=== PATIENT | female | born 1970 | race African-American/Black ===

== ENCOUNTER 2019-11-01 16:39 | Emergency (ER) | payer SELFPAY ==
[2019-11-01] MEDS ORDERED: Albuterol 6.7 GM Inhaler INH ONE ×2 (16:40→18:19)
[2019-11-01] MEDS ORDERED: Albuterol/Ipratropium 3.0-0.5 MG/3 ML Neb Soln NEB ONE (17:02)
[2019-11-01] MEDS ORDERED: methylPREDNISolone Sodium Succinate 125 MG/2 ML SDV IM ONE (17:42)
--- NOTE | 2019-11-01 17:46 | EDM.PDOC ---
ED HPI GENERAL MEDICAL PROBLEM - General Chief Complaint: Respiratory Problem Stated Complaint: ASHMA ATTACK Time Seen by Provider: 11/01/19 17:35 Source of Information: Reports: Patient, RN, RN Notes Reviewed History Limitations: Reports: No Limitations - History of Present Illness INITIAL COMMENTS - FREE TEXT/NARRATIVE: Pt presents to ER with c/o increases SOB and exacerbation of asthma. Patient states she traveled here from [place] about 3 weeks ago. States she began having an exacerbation of asthma. She states it has been worsening over the past few days. States she has not been able to see pulmonology recently due to COVID-19. patient states [place] Unsure what this inhaler is. States she does not use a steroid inhaler. Patient states she has been using her albuterol nebulizer. Onset: Gradual - Related Data Allergies Allergy/AdvReac Type Severity Reaction Status Date / Time No Known Allergies Allergy Verified 11/01/19 16:50 Home Meds: Home Meds Albuterol Sulfate 1 unit INH ASDIRECTED PRN 11/01/19 [History] Albuterol [Ventolin HFA] 2 puff INH Q4H PRN 11/01/19 [History] Cetirizine HCl [Zyrtec] 10 mg PO DAILY 11/01/19 [History] ClonazePAM [KlonoPIN] 1 tab PO BEDTIME 11/01/19 [History] Fluticasone Propionate [Flonase Allergy Relief] 2 spray NASBOTH DAILY 11/01/19 [ History] buPROPion [Wellbutrin SR] 150 mg PO DAILY 11/01/19 [History] Past Medical History HEENT History: Reports: None Cardiovascular History: Reports: None Respiratory History: Reports: Asthma Gastrointestinal History: Reports: None Genitourinary History: Reports: None Neurological History: Reports: None Psychiatric History: Reports: Anxiety, Depression Endocrine/Metabolic History: Reports: None Hematologic History: Reports: None Immunologic History: Reports: None Oncologic (Cancer) History: Reports: None Dermatologic History: Reports: None - Past Surgical History Musculoskeletal Surgical History: Reports: Other (See Below) Other Musculoskeletal Surgeries/Procedures:: Lower back surgery due to ruptured disk. disk replaced in neck Social & Family History - Tobacco Use Smoking Status *Q: Former Smoker Used Tobacco, but Quit: Yes Month/Year Tobacco Last Used: 1 year ED ROS GENERAL - Review of Systems Review Of Systems: Comprehensive ROS is negative, except as noted in HPI. ED EXAM, GENERAL - Physical Exam Exam: See Below Exam Limited By: No Limitations General Appearance: Alert, WD/WN, Mild Distress Eye Exam: Bilateral Eye: EOMI, Normal Inspection Ears: Normal External Exam, Hearing Grossly Normal Nose: Normal Inspection Throat/Mouth: Normal Inspection, Normal Voice, No Airway Compromise Head: Atraumatic, Normocephalic Neck: Normal Inspection, Supple, Non-Tender, Full Range of Motion Respiratory/Chest: Respiratory Distress (mild), Crackles, Wheezing Cardiovascular: Normal Peripheral Pulses, Regular Rate, Rhythm, No Edema, No Gallop, No JVD, No Murmur, No Rub Peripheral Pulses: 2+: Radial (L), Radial (R) GI/Abdominal: Normal Bowel Sounds, Soft, Non-Tender, No Organomegaly, No Distention, No Abnormal Bruit, No Mass (Female) Exam: Deferred Rectal (Female) Exam: Deferred Back Exam: Normal Inspection, Full Range of Motion, NT Extremities: Normal Inspection, Normal Range of Motion, Non-Tender, Normal Capillary Refill, No Pedal Edema Neurological: Alert, Oriented, CN II-XII Intact, Normal Cognition, Normal Gait, Normal Reflexes, No Motor/Sensory Deficits Psychiatric: Normal Affect, Normal Mood Skin Exam: Warm, Dry, Intact, Normal Color, No Rash Lymphatic: No Adenopathy Course - Vital Signs Last Recorded V/S: Last Vital Signs Temp 98.1 F 11/01/19 16:45 Pulse 100 11/01/19 17:02 Resp 22 H 11/01/19 16:45 BP 117/91 H 11/01/19 16:45 Pulse Ox 91 L 11/01/19 17:02 - Orders/Labs/Meds Orders: Active Orders 24 hr Category Date Time Status RT Aerosol Therapy [RC] ASDIRECTED Care 11/01/19 17:02 Active RT Aerosol Therapy [RC] ASDIRECTED Care 11/01/19 18:09 Active Chest 2V [CR] Urgent Exams 11/01/19 18:10 Stop Req Meds: Medications Discontinued Medications Generic Name Dose Route Start Last Admin Trade Name Freq PRN Reason Stop Dose Admin Albuterol 2.5 mg 11/01/19 18:09 11/01/19 18:14 Proventil Neb Soln NEB 11/01/19 18:10 2.5 mg ONETIME ONE Administration Albuterol Confirm 11/01/19 18:19 11/01/19 18:23 Proventil Hfa Administered 11/01/19 18:20 Not Given Dose 6.7 gm INH .STK-MED ONE Albuterol/Ipratropium 3 ml 11/01/19 17:02 11/01/19 17:10 Duoneb 3.0-0.5 Mg/3 Ml NEB 11/01/19 17:03 3 ml ONETIME ONE Administration Methylprednisolone Sodium Succinate 125 mg 11/01/19 17:42 11/01/19 17:48 Solu-Medrol IM 11/01/19 17:43 125 mg ONETIME ONE Administration - Re-Assessments/Exams Free Text/Narrative Re-Assessment/Exam: 11/01/19 18:18 Patient declines chest x-ray or lab work today. Patient states she has not had a fever or chills. Patient states she is from [place] and out of [facility], states if she develops worsening symptoms fever, chills, increased shortness of breath , she states she will return to the ER. Departure - Departure Time of Disposition: 18:40 Disposition: Home, Self-Care 01 Condition: Fair Clinical Impression: Exacerbation of asthma Qualifiers: Asthma severity: moderate Asthma persistence: persistent Qualified Code(s): J45.41 - Moderate persistent asthma with (acute) exacerbation - Discharge Information *PRESCRIPTION DRUG MONITORING PROGRAM REVIEWED*: No *COPY OF PRESCRIPTION DRUG MONITORING REPORT IN PATIENT IVANNA: No Instructions: Shortness of Breath, Adult, [id number] Forms: ED Department Discharge Additional Instructions: RX: Pulmicort inhaler, Prednisone, Albuterol inhaler Follow up with your primary care facility and pulmonology Return to the ER with any worsening of symptoms Sepsis Event Note - Evaluation Sepsis Screening Result: Possible Sepsis Risk - Focused Exam Vital Signs: Vital Signs Temp Pulse Resp BP Pulse Ox Pulse Ox 11/01/19 17:02 100 91 L 11/01/19 16:45 98.1 F 100 22 H 117/91 H 93 L Date Exam was Performed: 11/01/19 Time Exam was Performed: 18:46 - My Orders Last 24 Hours: My Active Orders 11/01/19 17:02 RT Aerosol Therapy [RC] ASDIRECTED 11/01/19 18:09 RT Aerosol Therapy [RC] ASDIRECTED 11/01/19 18:10 Chest 2V [CR] Urgent - Assessment/Plan Last 24 Hours: My Active Orders 11/01/19 17:02 RT Aerosol Therapy [RC] ASDIRECTED 11/01/19 18:09 RT Aerosol Therapy [RC] ASDIRECTED 11/01/19 18:10 Chest 2V [CR] Urgent
[2019-11-01] MEDS ORDERED: Albuterol 0.083% 2.5 MG/3 ML Neb Soln NEB ONE (18:09)
== END 2019-11-01 18:35 | disposition home or self-care (01) ==
LOC: DL.ED 16:39
DX: J45.41 Moderate persistent asthma with (acute) exacerbation (principal); F41.9 Anxiety disorder, unspecified; F32.9 Major depressive disorder, single episode, unspecified; Z87.891 Personal history of nicotine dependence; Z79.899 Other long term (current) drug therapy
CPT/HCPCS: 94640; 96372; 99283; 99284-25; A9270-GY; J2930; J7613-GY; J7620-GY

== ENCOUNTER 2019-11-18 13:11 | Emergency (ER) | payer SELFPAY ==
[2019-11-18] MEDS ORDERED: Albuterol/Ipratropium 3.0-0.5 MG/3 ML Neb Soln NEB ONE (13:27)
[2019-11-18] MEDS ORDERED: methylPREDNISolone Sodium Succinate 125 MG/2 ML SDV IM ONE (13:27)
--- NOTE | 2019-11-18 13:27 | EDM.PDOC ---
ED HPI GENERAL MEDICAL PROBLEM - General Chief Complaint: Asthma Stated Complaint: ASTHMA ATTACK Time Seen by Provider: 11/18/19 13:27 Source of Information: Reports: Patient, Old Records, RN, RN Notes Reviewed History Limitations: Reports: No Limitations - History of Present Illness INITIAL COMMENTS - FREE TEXT/NARRATIVE: Pt presents to ER by POV with c/o asthma flare up. She states for the past 2 to 3 days she has had increasing problems with her asthma flaring up. Coughing up "opaque" sputum. Denies fever and chills. Denies asthma flare up being different from prior flare ups. Using her Proventil MDI "quite often". Not using the nebulizer, "it stopped working about 2 weeks ago" and feels MDI working better. Onset: Gradual Duration: Recurring Location: Reports: Chest Severity: Severe Improves with: Reports: None Worsens with: Reports: Breathing Associated Symptoms: Reports: No Other Symptoms Treatments THERAPY MANAGER: Reports: Breathing Treatments - Related Data Allergies Allergy/AdvReac Type Severity Reaction Status Date / Time No Known Allergies Allergy Verified 11/18/19 13:16 Home Meds: Home Meds Albuterol Sulfate 1 unit INH ASDIRECTED PRN 11/01/19 [History] Albuterol [Ventolin HFA] 2 puff INH Q4H PRN 11/01/19 [History] Cetirizine HCl [Zyrtec] 10 mg PO DAILY 11/01/19 [History] ClonazePAM [KlonoPIN] 1 tab PO BEDTIME 11/01/19 [History] Fluticasone Propionate [Flonase Allergy Relief] 2 spray NASBOTH DAILY 11/01/19 [ History] buPROPion [Wellbutrin SR] 150 mg PO DAILY 11/01/19 [History] Past Medical History HEENT History: Reports: None Cardiovascular History: Reports: None Respiratory History: Reports: Asthma Gastrointestinal History: Reports: None Genitourinary History: Reports: None Neurological History: Reports: None Psychiatric History: Reports: Anxiety, Depression Endocrine/Metabolic History: Reports: None Hematologic History: Reports: None Immunologic History: Reports: None Oncologic (Cancer) History: Reports: None Dermatologic History: Reports: None - Past Surgical History Musculoskeletal Surgical History: Reports: Other (See Below) Other Musculoskeletal Surgeries/Procedures:: Lower back surgery due to ruptured disk. disk replaced in neck Social & Family History - Family History Family Medical History: Noncontributory - Living Situation & Occupation Living situation: Reports: with Family Occupation: Employed ED ROS GENERAL - Review of Systems Review Of Systems: Comprehensive ROS is negative, except as noted in HPI. ED EXAM, GENERAL - Physical Exam Exam: See Below Exam Limited By: No Limitations General Appearance: Alert, WD/WN, No Apparent Distress Eye Exam: Bilateral Eye: Normal Inspection Ears: Normal External Exam, Normal Canal, Hearing Grossly Normal, Other (Dull TMs with clear fluid levels) Nose: No Blood, Other (mild congestion) Throat/Mouth: Normal Inspection, Normal Lips, Normal Teeth, Normal Gums, Normal Oropharynx, Normal Voice, No Airway Compromise Head: Atraumatic, Normocephalic Neck: Normal Inspection, Supple, Non-Tender, Full Range of Motion Respiratory/Chest: No Respiratory Distress, No Accessory Muscle Use, Decreased Breath Sounds, Wheezing. No: Rales, Rhonchi, Stridor Cardiovascular: Regular Rate, Rhythm, No Edema, Tachycardia Extremities: Normal Inspection, No Pedal Edema Neurological: Alert, Oriented, No Motor/Sensory Deficits Psychiatric: Normal Mood Skin Exam: Warm, Dry, Intact, Normal Color, No Rash Course - Vital Signs Last Recorded V/S: Last Vital Signs Temp 98 F 11/18/19 13:13 Pulse 97 11/18/19 13:28 Resp 22 H 11/18/19 13:13 BP 119/63 11/18/19 13:13 Pulse Ox 98 11/18/19 13:28 - Orders/Labs/Meds Orders: Active Orders 24 hr Category Date Time Status RT Aerosol Therapy [RC] ASDIRECTED Care 11/18/19 13:28 Active Meds: Medications Discontinued Medications Generic Name Dose Route Start Last Admin Trade Name Freq PRN Reason Stop Dose Admin Albuterol/Ipratropium 3 ml 11/18/19 13:27 11/18/19 13:35 Duoneb 3.0-0.5 Mg/3 Ml NEB 11/18/19 13:28 3 ml ONETIME ONE Administration Methylprednisolone Sodium Succinate 125 mg 11/18/19 13:27 11/18/19 13:48 Solu-Medrol IM 11/18/19 13:28 125 mg ONETIME ONE Administration Departure - Departure Time of Disposition: 13:38 Disposition: Home, Self-Care 01 Condition: Good Clinical Impression: Environmental and seasonal allergies Acute asthma exacerbation Qualifiers: Asthma severity: severe Asthma persistence: persistent Qualified Code(s): J45.51 - Severe persistent asthma with (acute) exacerbation - Discharge Information *PRESCRIPTION DRUG MONITORING PROGRAM REVIEWED*: Not Applicable *COPY OF PRESCRIPTION DRUG MONITORING REPORT IN PATIENT IVANNA: Not Applicable Instructions: Allergies, Adult, [id number], Asthma Attack Forms: ED Department Discharge Additional Instructions: Rx: Prednisone 20mg *Take with meals. Rx: ProAir (Albuterol) Inhaler Rx: Flovent 220mcg (for asthma maintenance) *Rinse mouth with water after every use. Follow up in clinic. Call [phone] to schedule an appointment at the [facility] in [place] in the next 4 to 5 days. Return to ER if worse at any time. Sepsis Event Note - Focused Exam Vital Signs: Vital Signs Temp Pulse Resp BP Pulse Ox Pulse Ox 11/18/19 13:28 97 98 11/18/19 13:13 98 F 104 H 22 H 119/63 95 Date Exam was Performed: 11/18/19 Time Exam was Performed: 13:49 - My Orders Last 24 Hours: My Active Orders 11/18/19 13:28 RT Aerosol Therapy [RC] ASDIRECTED - Assessment/Plan Last 24 Hours: My Active Orders 11/18/19 13:28 RT Aerosol Therapy [RC] ASDIRECTED
== END 2019-11-18 14:09 | disposition home or self-care (01) ==
LOC: DL.ED 13:11
DX: J45.51 Severe persistent asthma with (acute) exacerbation (principal); J30.2 Other seasonal allergic rhinitis; F41.9 Anxiety disorder, unspecified; F32.9 Major depressive disorder, single episode, unspecified; Z79.899 Other long term (current) drug therapy
CPT/HCPCS: 96372; 99284; J2930; J7620-GY

== ENCOUNTER 2019-11-29 10:54 | Emergency (ER) | payer SELFPAY ==
--- NOTE | 2019-11-29 11:16 | EDM.PDOC ---
ED HPI GENERAL MEDICAL PROBLEM - General Chief Complaint: Respiratory Problem Stated Complaint: ASTHMA SYMPTOMS Time Seen by Provider: 11/29/19 11:15 Source of Information: Reports: Patient, RN, RN Notes Reviewed - History of Present Illness INITIAL COMMENTS - FREE TEXT/NARRATIVE: Patient presents to ER with complaint of increased shortness of breath, pain in the center of the chest with breathing, congestion. Patient admits to asthma history. Has been seen in the emergency department on October 31, and November 17. Both times patient declined chest x-ray and lab. Was prescribed prednisone and albuterol inhalers. In October she was prescribed a Pulmicort inhaler, and in November she was prescribed a Flovent inhaler which she stated were to expensive for her to fill. Patient states she is from [place] and has a plan to go back to [place] as soon as she can. Patient denies any productive cough, fever, chills. Onset: Gradual Duration: Constant, Getting Worse Location: Reports: Chest - Related Data Allergies Allergy/AdvReac Type Severity Reaction Status Date / Time No Known Allergies Allergy Verified 11/29/19 11:13 Home Meds: Home Meds Albuterol Sulfate 1 unit INH ASDIRECTED PRN 11/01/19 [History] Albuterol [Ventolin HFA] 2 puff INH Q4H PRN 11/01/19 [History] Cetirizine HCl [Zyrtec] 10 mg PO DAILY 11/01/19 [History] ClonazePAM [KlonoPIN] 1 tab PO BEDTIME 11/01/19 [History] Fluticasone Propionate [Flonase Allergy Relief] 2 spray NASBOTH DAILY 11/01/19 [ History] buPROPion [Wellbutrin SR] 150 mg PO DAILY 11/01/19 [History] Past Medical History HEENT History: Reports: None Cardiovascular History: Reports: None Respiratory History: Reports: Asthma Gastrointestinal History: Reports: None Genitourinary History: Reports: None Neurological History: Reports: None Psychiatric History: Reports: Anxiety, Depression Endocrine/Metabolic History: Reports: None Hematologic History: Reports: None Immunologic History: Reports: None Oncologic (Cancer) History: Reports: None Dermatologic History: Reports: None - Past Surgical History Musculoskeletal Surgical History: Reports: Other (See Below) Other Musculoskeletal Surgeries/Procedures:: Lower back surgery due to ruptured disk. disk replaced in neck Social & Family History - Family History Family Medical History: Noncontributory - Living Situation & Occupation Living situation: Reports: with Family Occupation: Employed ED ROS GENERAL - Review of Systems Review Of Systems: Comprehensive ROS is negative, except as noted in HPI. ED EXAM, GENERAL - Physical Exam Exam: See Below Exam Limited By: No Limitations General Appearance: Alert, WD/WN, Mild Distress Eye Exam: Bilateral Eye: EOMI, Normal Inspection Ears: Normal External Exam, Hearing Grossly Normal Nose: Normal Inspection Throat/Mouth: Normal Inspection, Normal Voice, No Airway Compromise Head: Atraumatic, Normocephalic Neck: Normal Inspection, Supple, Non-Tender, Full Range of Motion Respiratory/Chest: Wheezing (expiratory), Other (Mild SOB, mid sternal pain with breathing) Cardiovascular: Normal Peripheral Pulses, Regular Rate, Rhythm, No Edema, No Gallop, No JVD, No Murmur, No Rub Peripheral Pulses: 2+: Radial (L), Radial (R) GI/Abdominal: Normal Bowel Sounds, Soft, Non-Tender (Female) Exam: Deferred Rectal (Female) Exam: Deferred Back Exam: Normal Inspection, Full Range of Motion, NT Extremities: Normal Inspection, Normal Range of Motion, Non-Tender, Normal Capillary Refill, No Pedal Edema Neurological: Alert, Oriented, CN II-XII Intact, Normal Cognition, Normal Gait, Normal Reflexes, No Motor/Sensory Deficits Psychiatric: Normal Affect, Normal Mood Skin Exam: Warm, Dry, Intact, Normal Color, No Rash Lymphatic: No Adenopathy Course - Vital Signs Last Recorded V/S: Last Vital Signs Temp 97.7 F 11/29/19 10:57 Pulse 81 11/29/19 11:30 Resp 20 11/29/19 10:57 BP 134/79 11/29/19 10:57 Pulse Ox 98 11/29/19 11:30 - Orders/Labs/Meds Orders: Active Orders 24 hr Category Date Time Status RT Aerosol Therapy [RC] ASDIRECTED Care 11/29/19 11:30 Active Meds: Medications Discontinued Medications Generic Name Dose Route Start Last Admin Trade Name Freq PRN Reason Stop Dose Admin Albuterol/Ipratropium 3 ml 11/29/19 11:29 11/29/19 11:44 Duoneb 3.0-0.5 Mg/3 Ml NEB 05/18/20 11:30 3 ml ONETIME ONE Administration Methylprednisolone Sodium Succinate 125 mg 11/29/19 12:55 11/29/19 13:04 Solu-Medrol IM 11/29/19 12:56 125 mg ONETIME ONE Administration - Radiology Interpretation Free Text/Narrative:: Chest xray: Bronchitis. No signs of heart failure, lung mass, or lobar pneumonia. See rad report Departure - Departure Time of Disposition: 13:06 Disposition: Home, Self-Care 01 Condition: Fair Clinical Impression: Asthmatic bronchitis with acute exacerbation Qualifiers: Asthma severity: moderate Asthma persistence: persistent Qualified Code(s): J45.41 - Moderate persistent asthma with (acute) exacerbation - Discharge Information *PRESCRIPTION DRUG MONITORING PROGRAM REVIEWED*: No *COPY OF PRESCRIPTION DRUG MONITORING REPORT IN PATIENT IVANNA: No Instructions: Metered Dose Inhaler (No Spacer Used), Acute Bronchitis, Adult, [id number], Asthma, Adult, [id number] Forms: ED Department Discharge Additional Instructions: Get plenty of rest Drink plenty of fluids RX: Albuterol inhaler (with refills), Prednisone, Azithromycin Get nebulizer machine at [employer] in [facility] Make an appointment with [facility] for an appointment Sepsis Event Note - Evaluation Sepsis Screening Result: No Definite Risk - Focused Exam Vital Signs: Vital Signs Temp Pulse Resp BP Pulse Ox Pulse Ox 11/29/19 11:30 81 98 11/29/19 10:57 97.7 F 94 20 134/79 97 Date Exam was Performed: 11/29/19 Time Exam was Performed: 18:54 - My Orders Last 24 Hours: My Active Orders 11/29/19 11:30 RT Aerosol Therapy [RC] ASDIRECTED - Assessment/Plan Last 24 Hours: My Active Orders 11/29/19 11:30 RT Aerosol Therapy [RC] ASDIRECTED
[2019-11-29] MEDS: Albuterol/Ipratropium 3.0-0.5 MG/3 ML Neb Soln NEB ONE (11:44)
--- NOTE | 2019-11-29 11:51 | CR ---
EXAMINATION: Chest 2V SEX: Female AGE: 49 years CLINICAL HISTORY: 49-year-old female with clinical "asthma" and clinical shortness of breath (SOB). INTERPRETATION: 1. Coarse accentuation central lung markings with some peribronchial "cuffing" and mild air trapping typical reactive airway disease i.e. asthmatic bronchitis. 2. Normal cardiac silhouette. Left-sided aortic arch. No pulmonary vascular congestion, cephalization of flow, alveolar edema or dependent effusion. 3. Evidence of lower cervical disc surgery. Lung apices clear. Midline tracheal airway and bronchi unremarkable. 4. No lung mass, hilar lymphadenopathy or focal lobar pneumonia. 5. No atelectasis/collapse. 6. No pneumothorax or pneumomediastinum. CONCLUSION: Bronchitis. No signs of heart failure lung mass or lobar pneumonia.
[2019-11-29] MEDS: methylPREDNISolone Sodium Succinate 125 MG/2 ML SDV IM ONE (13:04)
== END 2019-11-29 13:16 | disposition home or self-care (01) ==
LOC: DL.ED 10:54
DX: J45.41 Moderate persistent asthma with (acute) exacerbation (principal)
CPT/HCPCS: 71046; 94640; 96372; 99285; J2930; J7620-GY

== ENCOUNTER 2019-12-09 03:54 | Observation (INO) | payer MEDICAID, OTHER, SELFPAY ==
[2019-12-09] MEDS ORDERED: Albuterol/Ipratropium 3.0-0.5 MG/3 ML Neb Soln NEB ONE (04:00)
[2019-12-09] MEDS ORDERED: methylPREDNISolone Sodium Succinate 125 MG/2 ML SDV IVPUSH ONE (04:00)
--- NOTE | 2019-12-09 04:10 | EDM.PDOC ---
ED HPI GENERAL MEDICAL PROBLEM - General Stated Complaint: LUIS ANTONIO DAUGHERTY, ASTHMA Time Seen by Provider: 12/09/19 04:05 Source of Information: Reports: Patient History Limitations: Reports: No Limitations - History of Present Illness INITIAL COMMENTS - FREE TEXT/NARRATIVE: Ed with c/o worsening of asthma today. Has only been this bad one time. Last neb approximately 30minutes prior. Non smoker. No fever or chills. Has been seen multiple times in ED over past 2 months. Last on 11/28 given steroids and z pack. Initial O2 saturation 83% on room air. Denies fever chills or body aches. - Related Data Allergies Allergy/AdvReac Type Severity Reaction Status Date / Time No Known Allergies Allergy Verified 12/09/19 04:09 Home Meds: Home Meds Albuterol Sulfate 1 unit INH ASDIRECTED PRN 11/01/19 [History] Albuterol [Ventolin HFA] 2 puff INH Q4H PRN 11/01/19 [History] Cetirizine HCl [Zyrtec] 10 mg PO DAILY 11/01/19 [History] ClonazePAM [KlonoPIN] 1 tab PO BEDTIME 11/01/19 [History] Fluticasone Propionate [Flonase Allergy Relief] 2 spray NASBOTH DAILY 11/01/19 [ History] buPROPion [Wellbutrin SR] 150 mg PO DAILY 11/01/19 [History] Past Medical History HEENT History: Reports: None Cardiovascular History: Reports: None Respiratory History: Reports: Asthma Gastrointestinal History: Reports: None Genitourinary History: Reports: None Neurological History: Reports: None Psychiatric History: Reports: Anxiety, Depression Endocrine/Metabolic History: Reports: None Hematologic History: Reports: None Immunologic History: Reports: None Oncologic (Cancer) History: Reports: None Dermatologic History: Reports: None - Past Surgical History Musculoskeletal Surgical History: Reports: Other (See Below) Other Musculoskeletal Surgeries/Procedures:: Lower back surgery due to ruptured disk. disk replaced in neck Social & Family History - Family History Family Medical History: Noncontributory - Living Situation & Occupation Living situation: Reports: with Family Occupation: Employed ED ROS GENERAL - Review of Systems Review Of Systems: See Below Constitutional: Denies: Fever, Chills HEENT: Reports: No Symptoms Respiratory: Reports: Shortness of Breath, Wheezing, Pleuritic Chest Pain, Cough. Denies: Sputum GI/Abdominal: Reports: No Symptoms Musculoskeletal: Reports: No Symptoms Skin: Reports: No Symptoms Neurological: Reports: No Symptoms ED EXAM, GENERAL - Physical Exam Exam: See Below Exam Limited By: No Limitations General Appearance: Alert, Moderate Distress Eye Exam: Bilateral Eye: EOMI Ears: Normal External Exam Nose: Normal Inspection Throat/Mouth: Normal Inspection Head: Atraumatic, Normocephalic Neck: Normal Inspection Respiratory/Chest: Rhonchi, Wheezing (throughout) Cardiovascular: Normal Peripheral Pulses, Regular Rate, Rhythm, Tachycardia GI/Abdominal: Soft Back Exam: Normal Inspection Extremities: Normal Inspection Neurological: Alert, Oriented, Normal Cognition Psychiatric: Normal Affect Skin Exam: Warm, Dry, Intact, Normal Color Course - Vital Signs Last Recorded V/S: Last Vital Signs Temp 98.7 F 12/09/19 05:13 Pulse 107 H 12/09/19 05:13 Resp 26 H 12/09/19 05:13 BP 154/68 H 12/09/19 05:13 Pulse Ox 98 12/09/19 05:13 - Orders/Labs/Meds Orders: Active Orders 24 hr Category Date Time Status EKG Documentation Completion [RC] URGENT Care 12/09/19 05:14 Active RT Aerosol Therapy [RC] ASDIRECTED Care 12/09/19 04:00 Active RT Aerosol Therapy [RC] ASDIRECTED Care 12/09/19 04:21 Active Labs: Laboratory Tests 12/09/19 12/09/19 12/09/19 Range/Units 04:17 04:17 04:17 WBC 14.7 H (5.0-10.0) 10^3/uL RBC 4.93 (4.2-5.4) 10^6/uL Hgb 12.7 (12.0-16.0) g/dL Hct 41.3 (37.0-47.0) % MCV 83.8 (80-100) fL MCH 25.8 L (27.0-34.0) pg MCHC 30.8 L (33.0-35.0) g/dL Plt Count 447 (150-450) 10^3/uL Neut % (Auto) 53.1 (42.2-75.2) % Lymph % (Auto) 29.0 (20.5-50.1) % [place] % (Auto) 7.5 (2-8) % Eos % (Auto) 10.2 H (1.0-3.0) % Baso % (Auto) 0.2 (0.0-1.0) % Add Manual Diff Yes Neutrophils % (Manual) 50 (42-75) % Band Neutrophils % 3 % Lymphocytes % (Manual) 32 (20-50) % Monocytes % (Manual) 5 (2-8) % Eosinophils % (Manual) 10 H (1-3) % Sodium 139 (136-145) mmol/L Potassium 3.9 (3.5-5.1) mmol/L Chloride 102 (98-107) mmol/L Carbon Dioxide 29 (21-32) mmol/L Anion Gap 11.9 (7-13) mEq/L BUN 13 (7-18) mg/dL Creatinine 0.98 (0.55-1.02) mg/dL Est Cr Clr Drug Dosing 58.07 mL/min Estimated GFR (MDRD) > 60 BUN/Creatinine Ratio 13.3 (No establ ref range) Glucose 167 H (74-99) mg/dL Lactic Acid 1.3 (0.4-2.0) mmol/L Calcium 9.0 (8.5-10.1) mg/dL Magnesium (1.8-2.4) mg/dL Total Bilirubin 0.2 (0.2-1.0) mg/dL AST 19 (15-37) U/L ALT 29 (14-59) U/L Alkaline Phosphatase 127 H (46-116) U/L Troponin I < 0.017 (0.000-0.056) ng/mL B-Natriuretic Peptide < 5 (0-100) pg/ml Total Protein 8.1 (6.4-8.2) g/dL Albumin 3.9 (3.4-5.0) g/dL Globulin 4.2 Albumin/Globulin Ratio 0.9 05/28/20 Range/Units 04:17 WBC (5.0-10.0) 10^3/uL RBC (4.2-5.4) 10^6/uL Hgb (12.0-16.0) g/dL Hct (37.0-47.0) % MCV (80-100) fL MCH (27.0-34.0) pg MCHC (33.0-35.0) g/dL Plt Count (150-450) 10^3/uL Neut % (Auto) (42.2-75.2) % Lymph % (Auto) (20.5-50.1) % [place] % (Auto) (2-8) % Eos % (Auto) (1.0-3.0) % Baso % (Auto) (0.0-1.0) % Add Manual Diff Neutrophils % (Manual) (42-75) % Band Neutrophils % % Lymphocytes % (Manual) (20-50) % Monocytes % (Manual) (2-8) % Eosinophils % (Manual) (1-3) % Sodium (136-145) mmol/L Potassium (3.5-5.1) mmol/L Chloride (98-107) mmol/L Carbon Dioxide (21-32) mmol/L Anion Gap (7-13) mEq/L BUN (7-18) mg/dL Creatinine (0.55-1.02) mg/dL Est Cr Clr Drug Dosing mL/min Estimated GFR (MDRD) BUN/Creatinine Ratio (No establ ref range) Glucose (74-99) mg/dL Lactic Acid (0.4-2.0) mmol/L Calcium (8.5-10.1) mg/dL Magnesium 2.4 (1.8-2.4) mg/dL Total Bilirubin (0.2-1.0) mg/dL AST (15-37) U/L ALT (14-59) U/L Alkaline Phosphatase (46-116) U/L Troponin I (0.000-0.056) ng/mL B-Natriuretic Peptide (0-100) pg/ml Total Protein (6.4-8.2) g/dL Albumin (3.4-5.0) g/dL Globulin Albumin/Globulin Ratio Meds: Medications Discontinued Medications Generic Name Dose Route Start Last Admin Trade Name Freq PRN Reason Stop Dose Admin Albuterol 2.5 mg 12/09/19 04:21 12/09/19 04:31 Proventil Neb Soln [facility] 12/09/19 04:22 2.5 mg ONETIME ONE Administration Albuterol/Ipratropium 3 ml 12/09/19 04:00 12/09/19 04:09 Duoneb 3.0-0.5 Mg/3 Ml [facility] 12/09/19 04:01 3 ml ONETIME ONE Administration Magnesium Sulfate 2 gm/ Premix 50 mls @ 25 mls/hr 12/09/19 04:22 IV 12/09/19 06:21 ONETIME ONE Magnesium Sulfate/Dextrose 1 100 mls @ 100 mls/hr 12/09/19 04:25 12/09/19 04: 31 gm/ Premix IV 12/09/19 05:24 100 mls/hr ONETIME ONE Administration Methylprednisolone Sodium Succinate 125 mg 12/09/19 04:00 12/09/19 04:09 Solu-Medrol IVPUSH 12/09/19 04:01 125 mg ONETIME ONE Administration - Radiology Interpretation Free Text/Narrative:: [facility] Final Radiology Report Call: [phone] assistance Online chat: [email or web address] Name: BLAIRE PHAM Age: 49Years F Date: 12/09/2019 SSN: -- : 1970 Study: XR CHEST 1 VIEW FRONTAL Requesting Physician: MARY BUSTILLOS Images: 1 Addl Studies: Provided Clinical History: hx asthma Contrast: Contrast Medium: Contrast Amount: Contrast Method: CONFIDENTIALITY STATEMENT This report is intended only for use by the referring physician, and only in accordance with law. If you received this in error, call [phone]. Page 1 of 1 PROCEDURE INFORMATION: Exam: XR Chest, 1 View Exam date and time: 12/09/2019 4:34 AM Age: 49 years old Clinical indication: Shortness of breath; Additional info: HX asthma TECHNIQUE: Imaging protocol: XR of the chest Views: 1 view. COMPARISON: CR Chest 2V 11/29/2019 11:35 AM FINDINGS: Lungs: As visualized lungs are clear. Pleural space: Unremarkable. No pleural effusion. No pneumothorax. Heart/Mediastinum: Unremarkable. No cardiomegaly. Bones/joints: Unremarkable. Soft tissues: Assessment of the lung bases limited by overlapping chest wall soft tissues. IMPRESSION: Haziness at the lung bases most likely related to overlapping chest wall soft tissues. Underlying lung parenchymal abnormality or small effusions cannot be confidently excluded. Thank you for allowing us to participate in the care of your patient. Dictated and Authenticated by: Charo Guerrero MD 12/09/2019 4:59 AM Central Time ([place] & [place]) - Re-Assessments/Exams Free Text/Narrative Re-Assessment/Exam: 12/09/19 04:4 Continued sheezing throughout with some improvement in air exchange, now 4-5 word sentences.. Less anxious. Up to BSC, Dyspnea and poor tolerance with minimal exertion 12/09/19 05:[address] Tovar accepting patient for observation. Departure - Departure Time of Disposition: 05:34 Disposition: Refer to Observation Condition: Good Clinical Impression: Hypoxemia Acute asthma exacerbation Qualifiers: Asthma severity: severe Asthma persistence: persistent Qualified Code(s): J45.51 - Severe persistent asthma with (acute) exacerbation - Discharge Information *PRESCRIPTION DRUG MONITORING PROGRAM REVIEWED*: No *COPY OF PRESCRIPTION DRUG MONITORING REPORT IN PATIENT IVANNA: No Sepsis Event Note - Focused Exam Vital Signs: Vital Signs Temp Pulse Resp BP Pulse Ox 12/09/19 05:13 98.7 F 107 H 26 H 154/68 H 98 12/09/19 04:07 99.1 F 133 H 28 H 152/93 H 83 L Date Exam was Performed: 12/09/19 Time Exam was Performed: :28 - My Orders Last 24 Hours: My Active Orders 12/09/19 04:00 RT Aerosol Therapy [RC] ASDIRECTED 12/09/19 04:21 RT Aerosol Therapy [RC] ASDIRECTED 12/09/19 05:14 EKG Documentation Completion [RC] URGENT - Assessment/Plan Last 24 Hours: My Active Orders 12/09/19 04:00 RT Aerosol Therapy [RC] ASDIRECTED 12/09/19 04:21 RT Aerosol Therapy [RC] ASDIRECTED 12/09/19 05:14 EKG Documentation Completion [RC] URGENT
[2019-12-09] MEDS ORDERED: Albuterol 0.083% 2.5 MG/3 ML Neb Soln NEB ONE (04:21)
[2019-12-09] MEDS ORDERED: Magnesium Sulfate/Water 2 GM in Premix Bag 1 BAG IV ONE (04:22)
[2019-12-09 05:03] LABS: ANION GAP 11.9 mEq/L (7-13); CHLORIDE,CL 102 mmol/L (98-107); SODIUM,NA 139 mmol/L (136-145)
[2019-12-09] MEDS ORDERED: Acetaminophen 325 MG Tab PO PRN (08:18)
[2019-12-09] MEDS ORDERED: Sodium Chloride 0.9% 10 ML Syringe FLUSH PRN (08:18)
[2019-12-09] MEDS ORDERED: Docusate Sodium 100 MG Cap PO PRN (08:18)
[2019-12-09] MEDS ORDERED: Ondansetron 4 MG Tab.DIS PO PRN (08:18)
[2019-12-09] MEDS ORDERED: Temazepam 15 MG Cap PO PRN (08:18)
[2019-12-09] MEDS ORDERED: Albuterol 0.083% 2.5 MG/3 ML Neb Soln NEB PRN (08:21)
[2019-12-09] MEDS ORDERED: Loratadine 10 MG Tab PO SCH (09:00)
[2019-12-09] MEDS ORDERED: buPROPion 150 MG Tab.SR PO SCH (09:00)
[2019-12-09] MEDS: Budesonide 0.5 MG/2 ML Neb Susp NEB SCH ×2 (09:14→17:48)
[2019-12-09] MEDS: Albuterol/Ipratropium 3.0-0.5 MG/3 ML Neb Soln NEB SCH ×3 (09:15→17:48)
[2019-12-09] MEDS ORDERED: Acetaminophen/HYDROcodone 325-10 MG Tab PO PRN (09:26)
--- NOTE | 2019-12-09 09:26 | PCM.HP ---
H&P History of Present Illness - General Date of Service: 12/09/19 Admit Problem/Dx: Admission Diagnosis/Problem Admission Diagnosis/Problem Asthma with acute exacerbation Source of Information: Patient - History of Present Illness Initial Comments - Free Text/Narative: 49-year-old with a history of asthma. She has not had regular primary care, has been in the emergency room 4 times in the past few weeks with exacerbation of asthma. She has been using short acting inhalers and nebulizers with oral steroids. She gets exacerbations when the oral steroids are weaned off. She presented with increasing shortness of breath over few days. She finished recently oral steroids. No associated fever, chills. No chest pain. The patient was noted to have oxygen saturations below 88 in the emergency room. She was given multiple risk of inhalers, oxygen administration started. She is feeling much better. - Related Data Allergies/Adverse Reactions: Allergies Allergy/AdvReac Type Severity Reaction Status Date / Time No Known Allergies Allergy Verified 12/09/19 06:01 Home Medications: Home Meds Albuterol Sulfate 1 unit INH ASDIRECTED PRN 11/01/19 [History] Albuterol [Ventolin HFA] 2 puff INH Q4H PRN 11/01/19 [History] Cetirizine HCl [Zyrtec] 10 mg PO DAILY 11/01/19 [History] ClonazePAM [KlonoPIN] 1 tab PO BEDTIME 11/01/19 [History] Fluticasone Propionate [Flonase Allergy Relief] 2 spray NASBOTH DAILY 11/01/19 [ History] buPROPion [Wellbutrin SR] 150 mg PO DAILY 11/01/19 [History] Past Medical History HEENT History: Reports: None Cardiovascular History: Reports: None Respiratory History: Reports: Asthma Gastrointestinal History: Reports: None Genitourinary History: Reports: None Neurological History: Reports: None Psychiatric History: Reports: Anxiety, Depression Endocrine/Metabolic History: Reports: None Hematologic History: Reports: None Immunologic History: Reports: None Oncologic (Cancer) History: Reports: None Dermatologic History: Reports: None - Infectious Disease History Infectious Disease History: Reports: Chicken Pox - Past Surgical History Musculoskeletal Surgical History: Reports: Other (See Below) Other Musculoskeletal Surgeries/Procedures:: Lower back surgery due to ruptured disk. disk replaced in neck Social & Family History - Family History Family Medical History: Noncontributory - Tobacco Use Smoking Status *Q: Former Smoker Years of Tobacco use: 25 Packs/Tins Daily: 0.5 Used Tobacco, but Quit: Yes Month/Year Tobacco Last Used: 2019 Second Hand Smoke Exposure: Yes - Caffeine Use Caffeine Use: Reports: None - Recreational Drug Use Recreational Drug Use: Yes Recreational Drug Type: Reports: Marijuana/Hashish Recreational Drug Use Frequency: Rarely - Living Situation & Occupation Living situation: Reports: with Family Occupation: Employed H&P Review of Systems - Review of Systems: Review Of Systems: See Below General: Reports: Weakness. Denies: Fever, Chills, Malaise HEENT: Denies: Sore Throat Pulmonary: Reports: Shortness of Breath, Wheezing. Denies: Sputum, Hemoptysis Cardiovascular: Denies: Chest Pain, Edema Gastrointestinal: Denies: Abdominal Pain Musculoskeletal: Reports: Neck Pain Psychiatric: Denies: Confusion Neurological: Reports: Tremors. Denies: Confusion, Seizure, Syncope Exam - Exam Exam: See Below - Vital Signs Vital Signs: Last Vital Signs Temp 97.5 F 12/09/19 08:18 Pulse 106 H 12/09/19 09:16 Resp 20 12/09/19 08:18 BP 143/86 H 12/09/19 08:18 Pulse Ox 98 12/09/19 08:18 Weight: 188 lb 1.6 oz - Exam Quality Assessment: Supplemental Oxygen General: Alert, Oriented Neck: Supple Lungs: Wheezing Cardiovascular: Regular Rate, Regular Rhythm GI/Abdominal Exam: Normal Bowel Sounds, Soft, Non-Tender Extremities: No Pedal Edema - Patient Data Lab Results Last 24 hrs: Laboratory Results - last 24 hr 12/09/19 12/09/19 12/09/19 Range/Units 04:17 04:17 04:17 WBC 14.7 H (5.0-10.0) 10^3/uL RBC 4.93 (4.2-5.4) 10^6/uL Hgb 12.7 (12.0-16.0) g/dL Hct 41.3 (37.0-47.0) % MCV 83.8 (80-100) fL MCH 25.8 L (27.0-34.0) pg MCHC 30.8 L (33.0-35.0) g/dL Plt Count 447 (150-450) 10^3/uL Neut % (Auto) 53.1 (42.2-75.2) % Lymph % (Auto) 29.0 (20.5-50.1) % [place] % (Auto) 7.5 (2-8) % Eos % (Auto) 10.2 H (1.0-3.0) % Baso % (Auto) 0.2 (0.0-1.0) % Add Manual Diff Yes Neutrophils % (Manual) 50 (42-75) % Band Neutrophils % 3 % Lymphocytes % (Manual) 32 (20-50) % Monocytes % (Manual) 5 (2-8) % Eosinophils % (Manual) 10 H (1-3) % Sodium 139 (136-145) mmol/L Potassium 3.9 (3.5-5.1) mmol/L Chloride 102 (98-107) mmol/L Carbon Dioxide 29 (21-32) mmol/L Anion Gap 11.9 (7-13) mEq/L BUN 13 (7-18) mg/dL Creatinine 0.98 (0.55-1.02) mg/dL Est Cr Clr Drug Dosing 58.07 mL/min Estimated GFR (MDRD) > 60 BUN/Creatinine Ratio 13.3 (No establ ref range) Glucose 167 H (74-99) mg/dL Lactic Acid 1.3 (0.4-2.0) mmol/L Calcium 9.0 (8.5-10.1) mg/dL Magnesium (1.8-2.4) mg/dL Total Bilirubin 0.2 (0.2-1.0) mg/dL AST 19 (15-37) U/L ALT 29 (14-59) U/L Alkaline Phosphatase 127 H (46-116) U/L Troponin I < 0.017 (0.000-0.056) ng/mL B-Natriuretic Peptide < 5 (0-100) pg/ml Total Protein 8.1 (6.4-8.2) g/dL Albumin 3.9 (3.4-5.0) g/dL Globulin 4.2 Albumin/Globulin Ratio 0.9 /28/20 Range/Units 04:17 WBC (5.0-10.0) 10^3/uL RBC (4.2-5.4) 10^6/uL Hgb (12.0-16.0) g/dL Hct (37.0-47.0) % MCV (80-100) fL MCH (27.0-34.0) pg MCHC (33.0-35.0) g/dL Plt Count (150-450) 10^3/uL Neut % (Auto) (42.2-75.2) % Lymph % (Auto) (20.5-50.1) % [place] % (Auto) (2-8) % Eos % (Auto) (1.0-3.0) % Baso % (Auto) (0.0-1.0) % Add Manual Diff Neutrophils % (Manual) (42-75) % Band Neutrophils % % Lymphocytes % (Manual) (20-50) % Monocytes % (Manual) (2-8) % Eosinophils % (Manual) (1-3) % Sodium (136-145) mmol/L Potassium (3.5-5.1) mmol/L Chloride (98-107) mmol/L Carbon Dioxide (21-32) mmol/L Anion Gap (7-13) mEq/L BUN (7-18) mg/dL Creatinine (0.55-1.02) mg/dL Est Cr Clr Drug Dosing mL/min Estimated GFR (MDRD) BUN/Creatinine Ratio (No establ ref range) Glucose (74-99) mg/dL Lactic Acid (0.4-2.0) mmol/L Calcium (8.5-10.1) mg/dL Magnesium 2.4 (1.8-2.4) mg/dL Total Bilirubin (0.2-1.0) mg/dL AST (15-37) U/L ALT (14-59) U/L Alkaline Phosphatase (46-116) U/L Troponin I (0.000-0.056) ng/mL B-Natriuretic Peptide (0-100) pg/ml Total Protein (6.4-8.2) g/dL Albumin (3.4-5.0) g/dL Globulin Albumin/Globulin Ratio Result Diagrams: 12/09/19 04:17 12/09/19 04:17 - Problem List (1) Acute asthma exacerbation SNOMED Code(s): 488741586 ICD Code: J45.901 - UNSPECIFIED ASTHMA WITH (ACUTE) EXACERBATION Status: Acute Current Visit: No Qualifiers: Asthma severity: severe Asthma persistence: persistent Qualified Code(s) : J45.51 - Severe persistent asthma with (acute) exacerbation (2) Hypoxemia SNOMED Code(s): 561202000 ICD Code: R09.02 - HYPOXEMIA Status: Acute Current Visit: No Problem List Initiated/Reviewed/Updated: Yes Orders Last 24hrs: Active Orders 24 hr Category Date Time Status Admission Diagnosis [ADT] Stat ADT 12/09/19 05:30 Ordered Admission Status [Patient Status] [ADT] Routine ADT 12/09/19 05:35 Active Antiembolic Devices [RC] PER UNIT ROUTINE Care 12/09/19 08:19 Active Cardiac Monitoring [RC] . DIRECTED Care 12/09/19 05:30 Active Oxygen Therapy [RC] PRN Care 12/09/19 08:18 Active Peripheral IV Care [RC] . DIRECTED Care 12/09/19 08:19 Active RT Aerosol Therapy [RC] ASDIRECTED Care 12/09/19 04:00 Active RT Aerosol Therapy [RC] ASDIRECTED Care 12/09/19 04:21 Active RT Aerosol Therapy [RC] ASDIRECTED Care 12/09/19 08:20 Active RT Aerosol Therapy [RC] ASDIRECTED Care 12/09/19 08:21 Active RT Aerosol Therapy [RC] ASDIRECTED Care 12/09/19 08:21 Active Up ad Adrienne [RC] ASDIRECTED Care 12/09/19 08:18 Active VTE/DVT Education [RC] PER UNIT ROUTINE Care 12/09/19 08:18 Active Vital Signs [RC] Q4H Care 12/09/19 08:18 Active Regular Diet [DIET] Diet 12/09/19 Lunch Active BASIC METABOLIC PANEL,BMP [CHEM] AM Lab 12/10/19 05:11 Ordered CBC W/O DIFF,HEMOGRAM [HEME] AM Lab 12/10/19 05:11 Ordered Acetaminophen [Tylenol] Med 12/09/19 08:18 Active 650 mg PO Q4H PRN Albuterol [Proventil Neb Soln] Med 12/09/19 08:21 Active 2.5 mg NEB Q2H PRN Albuterol/Ipratropium [DuoNeb 3.0-0.5 MG/3 ML] Med 12/09/19 10:00 Active 3 ml NEB Q6HRRT Budesonide [Pulmicort] Med 12/09/19 08:19 Active 0.5 mg NEB BIDRT ClonazePAM [KlonoPIN] Med 12/09/19 21:00 Active 0.5 mg PO BEDTIME Docusate Sodium [Colace] Med 12/09/19 08:18 Active 100 mg PO BID PRN Heparin Sodium Med 12/09/19 14:00 Active 5,000 units SUBCUT Q8HR Loratadine [Claritin] Med 12/09/19 09:00 Active 10 mg PO DAILY Ondansetron [Zofran ODT] Med 12/09/19 08:18 Active 4 mg PO Q6H PRN Sodium Chloride 0.9% [Saline Flush] Med 12/09/19 08:18 Active 10 ml FLUSH ASDIRECTED PRN buPROPion [Wellbutrin SR] Med 12/09/19 09:00 Active 150 mg PO DAILY methylPREDNISolone Sod Succ [Solu-MEDROL] Med 12/09/19 08:30 Active 40 mg IVPUSH Q8HR Antiembolic Hose [OM.PC] Per Unit Routine Oth 12/09/19 08:18 Ordered Peripheral IV Insertion Adult [OM.PC] Routine Oth 12/09/19 08:18 Ordered Saline Lock Insert [OM.PC] Routine Oth 12/09/19 08:18 Ordered Resuscitation Status Routine Resus Stat 12/09/19 08:18 Ordered Medication Orders Acetaminophen (Tylenol) 650 mg PO Q4H PRN PRN Reason: Pain (Mild 1-3)/fever Albuterol (Proventil Neb Soln) 2.5 mg NEB Q2H PRN PRN Reason: sob Albuterol/Ipratropium (Duoneb 3.0-0.5 Mg/3 Ml) 3 ml NEB Q6HRRT APRIL Last Admin: 12/09/19 09:15 Dose: 3 ml Budesonide (Pulmicort) 0.5 mg NEB BIDRT APRIL Last Admin: 12/09/19 09:14 Dose: 0.5 mg Bupropion HCl (Wellbutrin Sr) 150 mg PO DAILY PARIL Clonazepam (Klonopin) 0.5 mg PO BEDTIME APRIL Docusate Sodium (Colace) 100 mg PO BID PRN PRN Reason: Constipation Heparin Sodium (Porcine) (Heparin Sodium) 5,000 units SUBCUT Q8HR APRIL Loratadine (Claritin) 10 mg PO DAILY APRIL Methylprednisolone Sodium Succinate (Solu-Medrol) 40 mg IVPUSH Q8HR APRIL Ondansetron HCl (Zofran Odt) 4 mg PO Q6H PRN PRN Reason: nausea, able to take PO Sodium Chloride (Saline Flush) 10 ml FLUSH ASDIRECTED PRN PRN Reason: Keep Vein Open Assessment/Plan Comment:: 49-year-old with a history of asthma with poor baseline control. Patient has been using the emergency room frequently, no primary care physician in the area. She has been on antibiotics and steroids. Medical leave from ER visits. Acute hypoxemic respiratory failure secondary to asthma exacerbation Appears improving Will taper oxygen Acute asthma exacerbation We'll use inhaled steroids, start Pulmicort Use systemic steroids with Solu-Medrol Frequent DuoNeb administration DVT prophylaxis with subcutaneous heparin
[2019-12-09] MEDS: methylPREDNISolone Sodium Succinate 40 MG/1 ML SDV IVPUSH SCH ×2 (09:40→15:14)
[2019-12-09] MEDS: Heparin Sodium 5,000 Units/ML Vial SUBCUT SCH ×2 (15:14→15:15)
--- NOTE | 2019-12-09 17:12 | PCM.DCSUM1 ---
Discharge Summary - Hospital Course Free Text/Narrative:: 49-year-old with a history of asthma with poor baseline control. Patient has been using the emergency room frequently, no primary care physician in the area. She has been on antibiotics and steroids. Medications from ER visits. Acute hypoxemic respiratory failure secondary to asthma exacerbation resolved Acute asthma exacerbation improved can not afford jail control inhalers We'll use oral and nebulised steroid - Pulmicort scheduled and prn DuoNeb administration hyperglycemia with polyuria noted might relate to high dose steroids f/up with PMD - new appt on Friday - Discharge Data Discharge Date: 12/09/19 Discharge Disposition: Home, Self-Care 01 Condition: Good - Referral to Home Health Primary Care Physician: PCP None - Discharge Diagnosis/Problem(s) (1) Acute asthma exacerbation SNOMED Code(s): 405475916 ICD Code: J45.901 - UNSPECIFIED ASTHMA WITH (ACUTE) EXACERBATION Status: Acute Current Visit: No Qualifiers: Asthma severity: severe Asthma persistence: persistent Qualified Code(s) : J45.51 - Severe persistent asthma with (acute) exacerbation (2) Hypoxemia SNOMED Code(s): 706653425 ICD Code: R09.02 - HYPOXEMIA Status: Acute Current Visit: No - Patient Instructions Diet: Heart Healthy Diet Activity: As Tolerated - Discharge Plan *PRESCRIPTION DRUG MONITORING PROGRAM REVIEWED*: No *COPY OF PRESCRIPTION DRUG MONITORING REPORT IN PATIENT IVANNA: No Prescriptions/Med Rec: Albuterol/Ipratropium [DuoNeb 3.0-0.5 MG/3 ML] 3 ml NEB Q6HRRT #90 neb Budesonide [Pulmicort] 0.5 mg NEB BIDRT #60 neb buPROPion [Wellbutrin SR] 150 mg PO DAILY #30 tab.sr predniSONE [Prednisone] 10 mg PO DAILY #35 tablet Home Medications: Home Meds Albuterol Sulfate 1 unit INH ASDIRECTED PRN 11/01/19 [History] Albuterol [Ventolin HFA] 2 puff INH Q4H PRN 11/01/19 [History] Cetirizine HCl [Zyrtec] 10 mg PO DAILY 11/01/19 [History] ClonazePAM [KlonoPIN] 1 tab PO BEDTIME 11/01/19 [History] Fluticasone Propionate [Flonase Allergy Relief] 2 spray NASBOTH DAILY 11/01/19 [ History] Albuterol/Ipratropium [DuoNeb 3.0-0.5 MG/3 ML] 3 ml NEB Q6HRRT #90 neb 12/09/19 [Rx] Budesonide [Pulmicort] 0.5 mg NEB BIDRT #60 neb 12/09/19 [Rx] buPROPion [Wellbutrin SR] 150 mg PO DAILY #30 tab.sr 12/09/19 [Rx] predniSONE [Prednisone] 10 mg PO DAILY #35 tablet 12/09/19 [Rx] Oxygen Therapy Mode: Room Air Forms: ED Department Discharge - Discharge Summary/Plan Comment DC Time >30 min.: No - General Info Date of Service: 12/09/19 - Review of Systems General: Denies: Fever, Weakness Pulmonary: Reports: Shortness of Breath (much improved), Wheezing. Denies: Cough, Sputum Cardiovascular: Denies: Chest Pain, Edema Genitourinary: Reports: Frequency - Patient Data Vitals - Most Recent: Last Vital Signs Temp 97.7 F 12/09/19 12:18 Pulse 111 H 12/09/19 13:54 Resp 22 H 12/09/19 12:18 BP 143/76 H 12/09/19 12:18 Pulse Ox 99 12/09/19 12:18 Weight - Most Recent: 188 lb 1.6 oz I&O - Last 24 hours: Intake & Output 12/09/19 12/09/19 12/09/19 06:59 14:59 22:59 Intake Total 950 Balance 950 Lab Results - Last 24 hrs: Laboratory Results - last 24 hr 12/09/19 12/09/19 12/09/19 Range/Units 04:17 04:17 04:17 WBC 14.7 H (5.0-10.0) 10^3/uL RBC 4.93 (4.2-5.4) 10^6/uL Hgb 12.7 (12.0-16.0) g/dL Hct 41.3 (37.0-47.0) % MCV 83.8 (80-100) fL MCH 25.8 L (27.0-34.0) pg MCHC 30.8 L (33.0-35.0) g/dL Plt Count 447 (150-450) 10^3/uL Neut % (Auto) 53.1 (42.2-75.2) % Lymph % (Auto) 29.0 (20.5-50.1) % [place] % (Auto) 7.5 (2-8) % Eos % (Auto) 10.2 H (1.0-3.0) % Baso % (Auto) 0.2 (0.0-1.0) % Add Manual Diff Yes Neutrophils % (Manual) 50 (42-75) % Band Neutrophils % 3 % Lymphocytes % (Manual) 32 (20-50) % Monocytes % (Manual) 5 (2-8) % Eosinophils % (Manual) 10 H (1-3) % Sodium 139 (136-145) mmol/L Potassium 3.9 (3.5-5.1) mmol/L Chloride 102 (98-107) mmol/L Carbon Dioxide 29 (21-32) mmol/L Anion Gap 11.9 (7-13) mEq/L BUN 13 (7-18) mg/dL Creatinine 0.98 (0.55-1.02) mg/dL Est Cr Clr Drug Dosing 58.07 mL/min Estimated GFR (MDRD) > 60 BUN/Creatinine Ratio 13.3 (No establ ref range) Glucose 167 H (74-99) mg/dL Lactic Acid 1.3 (0.4-2.0) mmol/L Calcium 9.0 (8.5-10.1) mg/dL Magnesium (1.8-2.4) mg/dL Total Bilirubin 0.2 (0.2-1.0) mg/dL AST 19 (15-37) U/L ALT 29 (14-59) U/L Alkaline Phosphatase 127 H (46-116) U/L Troponin I < 0.017 (0.000-0.056) ng/mL B-Natriuretic Peptide < 5 (0-100) pg/ml Total Protein 8.1 (6.4-8.2) g/dL Albumin 3.9 (3.4-5.0) g/dL Globulin 4.2 Albumin/Globulin Ratio 0.9 // Range/Units 04:17 WBC (5.0-10.0) 10^3/uL RBC (4.2-5.4) 10^6/uL Hgb (12.0-16.0) g/dL Hct (37.0-47.0) % MCV (80-100) fL MCH (27.0-34.0) pg MCHC (33.0-35.0) g/dL Plt Count (150-450) 10^3/uL Neut % (Auto) (42.2-75.2) % Lymph % (Auto) (20.5-50.1) % [place] % (Auto) (2-8) % Eos % (Auto) (1.0-3.0) % Baso % (Auto) (0.0-1.0) % Add Manual Diff Neutrophils % (Manual) (42-75) % Band Neutrophils % % Lymphocytes % (Manual) (20-50) % Monocytes % (Manual) (2-8) % Eosinophils % (Manual) (1-3) % Sodium (136-145) mmol/L Potassium (3.5-5.1) mmol/L Chloride (98-107) mmol/L Carbon Dioxide (21-32) mmol/L Anion Gap (7-13) mEq/L BUN (7-18) mg/dL Creatinine (0.55-1.02) mg/dL Est Cr Clr Drug Dosing mL/min Estimated GFR (MDRD) BUN/Creatinine Ratio (No establ ref range) Glucose (74-99) mg/dL Lactic Acid (0.4-2.0) mmol/L Calcium (8.5-10.1) mg/dL Magnesium 2.4 (1.8-2.4) mg/dL Total Bilirubin (0.2-1.0) mg/dL AST (15-37) U/L ALT (14-59) U/L Alkaline Phosphatase (46-116) U/L Troponin I (0.000-0.056) ng/mL B-Natriuretic Peptide (0-100) pg/ml Total Protein (6.4-8.2) g/dL Albumin (3.4-5.0) g/dL Globulin Albumin/Globulin Ratio Med Orders - Current: Current Medications Acetaminophen (Tylenol) 650 mg PO Q4H PRN PRN Reason: Pain (Mild 1-3)/fever Hydrocodone Bitart/Acetaminophen ([place] 325-10 Mg) 1 tab PO Q4H PRN PRN Reason: moderate pain Last Admin: 05/28/20 10:01 Dose: 1 tab Albuterol (Proventil Neb Soln) 2.5 mg NEB Q2H PRN PRN Reason: sob Albuterol/Ipratropium (Duoneb 3.0-0.5 Mg/3 Ml) 3 ml NEB Q6HRRT [facility] Last Admin: 12/09/19 13:53 Dose: 3 ml Budesonide (Pulmicort) 0.5 mg NEB BIDRT [facility] Last Admin: 12/09/19 09:14 Dose: 0.5 mg Bupropion HCl (Wellbutrin Sr) 150 mg PO DAILY [facility] Last Admin: 12/09/19 09:40 Dose: 150 mg Clonazepam (Klonopin) 0.5 mg PO BEDTIME [facility] Docusate Sodium (Colace) 100 mg PO BID PRN PRN Reason: Constipation Last Admin: 12/09/19 10:01 Dose: 100 mg Heparin Sodium (Porcine) (Heparin Sodium) 5,000 units SUBCUT Q8HR [facility] Last Admin: 12/09/19 15:15 Dose: Not Given Loratadine (Claritin) 10 mg PO DAILY [facility] Last Admin: 12/09/19 09:40 Dose: 10 mg Methylprednisolone Sodium Succinate (Solu-Medrol) 40 mg IVPUSH Q8HR [facility] Last Admin: 12/09/19 15:14 Dose: 40 mg Ondansetron HCl (Zofran Odt) 4 mg PO Q6H PRN PRN Reason: nausea, able to take PO Sodium Chloride (Saline Flush) 10 ml FLUSH ASDIRECTED PRN PRN Reason: Keep Vein Open Last Admin: 12/09/19 09:41 Dose: 10 ml Discontinued Medications Albuterol (Proventil Neb Soln) 2.5 mg NEB ONETIME ONE Stop: 12/09/19 04:22 Last Admin: 12/09/19 04:31 Dose: 2.5 mg Albuterol/Ipratropium (Duoneb 3.0-0.5 Mg/3 Ml) 3 ml NEB ONETIME ONE Stop: 12/09/19 04:01 Last Admin: 12/09/19 04:09 Dose: 3 ml Magnesium Sulfate 2 gm/ Premix 50 mls @ 25 mls/hr IV ONETIME ONE Stop: 12/09/19 06:21 Last Admin: 12/09/19 07:48 Dose: Not Given Magnesium Sulfate/Dextrose 1 (gm/ Premix) 100 mls @ 100 mls/hr IV ONETIME ONE Stop: 12/09/19 05:24 Last Admin: 12/09/19 04:31 Dose: 100 mls/hr Methylprednisolone Sodium Succinate (Solu-Medrol) 125 mg IVPUSH ONETIME ONE Stop: 12/09/19 04:01 Last Admin: 12/09/19 04:09 Dose: 125 mg Temazepam (Restoril) 15 mg PO BEDTIME PRN PRN Reason: Sleep - Exam Quality Assessment: Denies: Supplemental Oxygen General: Reports: Alert, Oriented Neck: Reports: Supple Lungs: Reports: Wheezing (improved) Neurological: Reports: No New Focal Deficit Psy/Mental Status: Reports: Alert, Normal Affect, Normal Mood
[2019-12-09] MEDS ORDERED: ClonazePAM 0.5 MG Tab PO SCH (21:00)
== END 2019-12-09 18:45 | disposition home or self-care (01) ==
LOC: DL.ED 03:54 → DL.MS 05:35 → DL.ED 05:46
PROVIDERS: ADMIT Internal Medicine; ATTEND Internal Medicine
DX: J45.51 Severe persistent asthma with (acute) exacerbation (principal); J96.01 Acute respiratory failure with hypoxia; F41.9 Anxiety disorder, unspecified; F32.9 Major depressive disorder, single episode, unspecified; R73.9 Hyperglycemia, unspecified; R35.8 Other polyuria; Z87.891 Personal history of nicotine dependence; Z79.51 Long term (current) use of inhaled steroids; Z79.899 Other long term (current) drug therapy
CPT/HCPCS: 36415; 71045; 80053; 83605; 83735; 83880; 84484; 85025; 93005; 94640; 96365; 96375; 99285; A9270; J2920; J2930; J3475; 96376; 99234; 99284; G0378; J1644; J7613-GY; J7620-GY

== ENCOUNTER 2020-01-26 23:34 | Emergency (ER) | payer MEDICAID, OTHER ==
[2020-01-27 00:56] LABS: ANION GAP 13.3 mEq/L (7-13); CHLORIDE,CL 103 mmol/L (98-107); SODIUM,NA 138 mmol/L (136-145)
[2020-01-27] MEDS ORDERED: methylPREDNISolone Sodium Succinate 125 MG/2 ML SDV IVPUSH ONE (01:23)
--- NOTE | 2020-01-27 01:28 | CR ---
PROCEDURE INFORMATION: Exam: XR Chest, 1 View Exam date and time: 01/27/2020 1:01 AM Age: 49 years old Clinical indication: Shortness of breath; Additional info: Asthma, SOB TECHNIQUE: Imaging protocol: XR of the chest Views: 1 view. COMPARISON: CR Chest 1V Frontal 12/09/2019 4:34 AM FINDINGS: Lungs: Unremarkable. No consolidation. Pleural space: Unremarkable. No pleural effusion. No pneumothorax. Heart/Mediastinum: Unremarkable. No cardiomegaly. Bones/joints: Unremarkable. IMPRESSION: No acute findings.
[2020-01-27] MEDS ORDERED: Ketorolac 30 MG/ML SDV IVPUSH ONE (01:52)
[2020-01-27] MEDS ORDERED: Albuterol/Ipratropium 3.0-0.5 MG/3 ML Neb Soln NEB ONE (01:52)
[2020-01-27] MEDS ORDERED: Azithromycin 250 MG Tab PO ONE (01:53)
--- NOTE | 2020-01-27 01:59 | EDM.PDOC ---
ED HPI GENERAL MEDICAL PROBLEM - General Chief Complaint: Respiratory Problem Stated Complaint: TROUBLE BREATHING-ASTHMA Time Seen by Provider: 01/26/20 23:55 Source of Information: Reports: Patient, RN History Limitations: Reports: No Limitations - History of Present Illness INITIAL COMMENTS - FREE TEXT/NARRATIVE: CO increased difficulty breathing past 4 days, worse with exertion and showering. Decreased appetite, chills no fever. Congestion and ears feel full especially in am. Mild sore throat , productive cough yellow phlegm. No known exposure to COVID Back Pain Score (Numeric/FACES): 7 - Related Data Allergies Allergy/AdvReac Type Severity Reaction Status Date / Time No Known Allergies Allergy Verified 01/27/20 00:34 Home Meds: Home Meds Fluticasone Propionate [Flonase Allergy Relief] 2 spray NASBOTH BID 11/01/19 [History] Albuterol [Ventolin HFA] 2 puff INH Q4H PRN #1 inhaler 12/09/19 [Rx] Albuterol/Ipratropium [DuoNeb 3.0-0.5 MG/3 ML] 3 ml NEB Q6HRRT #90 neb 12/09/19 [Rx] buPROPion [Wellbutrin SR] 150 mg PO DAILY #30 tab.sr 12/09/19 [Rx] Montelukast Sodium [Singulair] 10 mg PO 01/27/20 [History] hydrOXYzine HCL [hydrOXYzine] 25 mg PO BID 01/27/20 [History] traZODone HCl [Trazodone HCl] 100 mg PO DAILY 01/27/20 [History] Past Medical History HEENT History: Reports: None Cardiovascular History: Reports: None Respiratory History: Reports: Asthma Gastrointestinal History: Reports: None Genitourinary History: Reports: None DIGITAL ARTIST History: Reports: Musculoskeletal History: Reports: Back Pain, Chronic Neurological History: Reports: None Psychiatric History: Reports: Anxiety, Depression Endocrine/Metabolic History: Reports: None, Obesity/BMI 30+ Hematologic History: Reports: None Immunologic History: Reports: None Oncologic (Cancer) History: Reports: None Dermatologic History: Reports: None - Infectious Disease History Infectious Disease History: Reports: Chicken Pox - Past Surgical History Musculoskeletal Surgical History: Reports: Other (See Below) Other Musculoskeletal Surgeries/Procedures:: Lower back surgery due to ruptured disk. disk replaced in neck Social & Family History - Family History Family Medical History: Noncontributory - Tobacco Use Smoking Status *Q: Light Tobacco Smoker Years of Tobacco use: 20 Packs/Tins Daily: 0.1 - Caffeine Use Caffeine Use: Reports: None - Recreational Drug Use Recreational Drug Use: No - Living Situation & Occupation Living situation: Reports: with Family Occupation: Employed ED ROS GENERAL - Review of Systems Review Of Systems: Comprehensive ROS is negative, except as noted in HPI. ED EXAM, GENERAL - Physical Exam Exam: See Below Exam Limited By: No Limitations General Appearance: Alert, Anxious, Mild Distress Eye Exam: Bilateral Eye: EOMI Ears: Normal External Exam Nose: Normal Inspection Throat/Mouth: Normal Inspection Head: Atraumatic, Normocephalic Neck: Normal Inspection Respiratory/Chest: No Respiratory Distress, Lungs Clear, Normal Breath Sounds Cardiovascular: Regular Rate, Rhythm GI/Abdominal: Normal Bowel Sounds, Soft, Non-Tender Back Exam: Full Range of Motion Extremities: Normal Inspection, Normal Range of Motion Neurological: Alert, Oriented, Normal Cognition Psychiatric: Normal Affect Skin Exam: Warm, Dry, Intact, Normal Color, No Rash Course - Vital Signs Last Recorded V/S: Last Vital Signs Temp 97.4 F 01/26/20 23:55 Pulse 94 01/26/20 23:55 Resp 20 01/26/20 23:55 BP 124/76 01/26/20 23:55 Pulse Ox 95 01/26/20 23:55 - Orders/Labs/Meds Orders: Active Orders 24 hr Category Date Time Status RT Aerosol Therapy [RC] ASDIRECTED Care 01/27/20 01:52 Active CULTURE BLOOD [BC] Stat Lab 01/27/20 00:22 Received Labs: Laboratory Tests 01/27/20 01/27/20 01/27/20 Range/Units 00:22 00:22 00:22 WBC 6.9 (5.0-10.0) 10^3/uL RBC 4.39 (4.2-5.4) 10^6/uL Hgb 11.4 L (12.0-16.0) g/dL Hct 36.8 L (37.0-47.0) % MCV 83.8 (80-100) fL MCH 26.0 L (27.0-34.0) pg MCHC 31.0 L (33.0-35.0) g/dL Plt Count 360 D (150-450) 10^3/uL Neut % (Auto) 53.5 (42.2-75.2) % Lymph % (Auto) 28.0 (20.5-50.1) % [place] % (Auto) 7.8 (2-8) % Eos % (Auto) 10.1 H (1.0-3.0) % Baso % (Auto) 0.6 (0.0-1.0) % Sodium 138 (136-145) mmol/L Potassium 3.3 L (3.5-5.1) mmol/L Chloride 103 (98-107) mmol/L Carbon Dioxide 25 (21-32) mmol/L Anion Gap 13.3 H (7-13) mEq/L BUN 8 (7-18) mg/dL Creatinine 0.98 (0.55-1.02) mg/dL Est Cr Clr Drug Dosing 58.07 mL/min Estimated GFR (MDRD) > 60 BUN/Creatinine Ratio 8.2 (No establ ref range) Glucose 105 H (74-99) mg/dL Lactic Acid 1.1 (0.4-2.0) mmol/L Calcium 8.3 L (8.5-10.1) mg/dL Total Bilirubin 0.3 (0.2-1.0) mg/dL AST 18 (15-37) U/L ALT 21 (14-59) U/L Alkaline Phosphatase 56 (46-116) U/L Troponin I < 0.017 (0.000-0.056) ng/mL B-Natriuretic Peptide < 5 (0-100) pg/ml Total Protein 7.3 (6.4-8.2) g/dL Albumin 3.5 (3.4-5.0) g/dL Globulin 3.8 Albumin/Globulin Ratio 0.9 Urine Color (YELLOW) Urine Appearance (CLEAR) Urine pH (5.0-9.0) Ur Specific [place] (1.005-1.030) Urine Protein (NEGATIVE) Urine Glucose (UA) (NEGATIVE) Urine Ketones (NEGATIVE) Urine Occult Blood (NEGATIVE) Urine Nitrite (NEGATIVE) Urine Bilirubin (NEGATIVE) Urine Urobilinogen (0.2-1.0) mg/dL Ur Leukocyte Esterase (NEGATIVE) Urine RBC /HPF Urine WBC (0-5/HPF) /HPF Ur Epithelial Cells (NOT SEEN) /HPF Amorphous Sediment (NOT SEEN) /HPF Urine Bacteria (0-FEW/HPF) /HPF Urine Mucus (NOT SEEN) /LPF COVID-19 (YESSICA) (NEGATIVE) 01/27/20 01/27/20 Range/Units 01:05 01:26 WBC (5.0-10.0) 10^3/uL RBC (4.2-5.4) 10^6/uL Hgb (12.0-16.0) g/dL Hct (37.0-47.0) % MCV (80-100) fL MCH (27.0-34.0) pg MCHC (33.0-35.0) g/dL Plt Count (150-450) 10^3/uL Neut % (Auto) (42.2-75.2) % Lymph % (Auto) (20.5-50.1) % [place] % (Auto) (2-8) % Eos % (Auto) (1.0-3.0) % Baso % (Auto) (0.0-1.0) % Sodium (136-145) mmol/L Potassium (3.5-5.1) mmol/L Chloride (98-107) mmol/L Carbon Dioxide (21-32) mmol/L Anion Gap (7-13) mEq/L BUN (7-18) mg/dL Creatinine (0.55-1.02) mg/dL Est Cr Clr Drug Dosing mL/min Estimated GFR (MDRD) BUN/Creatinine Ratio (No establ ref range) Glucose (74-99) mg/dL Lactic Acid (0.4-2.0) mmol/L Calcium (8.5-10.1) mg/dL Total Bilirubin (0.2-1.0) mg/dL AST (15-37) U/L ALT (14-59) U/L Alkaline Phosphatase (46-116) U/L Troponin I (0.000-0.056) ng/mL B-Natriuretic Peptide (0-100) pg/ml Total Protein (6.4-8.2) g/dL Albumin (3.4-5.0) g/dL Globulin Albumin/Globulin Ratio Urine Color Yellow (YELLOW) Urine Appearance Clear (CLEAR) Urine pH 6.5 (5.0-9.0) Ur Specific [place] 1.010 (1.005-1.030) Urine Protein Negative (NEGATIVE) Urine Glucose (UA) Negative (NEGATIVE) Urine Ketones Negative (NEGATIVE) Urine Occult Blood Small H (NEGATIVE) Urine Nitrite Negative (NEGATIVE) Urine Bilirubin Negative (NEGATIVE) Urine Urobilinogen 0.2 (0.2-1.0) mg/dL Ur Leukocyte Esterase Negative (NEGATIVE) Urine RBC 5-10 H /HPF Urine WBC 0-5 (0-5/HPF) /HPF Ur Epithelial Cells Occasional (NOT SEEN) /HPF Amorphous Sediment Rare (NOT SEEN) /HPF Urine Bacteria Rare (0-FEW/HPF) /HPF Urine Mucus Rare (NOT SEEN) /LPF COVID-19 (YESSICA) Negative (NEGATIVE) Meds: Medications Discontinued Medications Generic Name Dose Route Start Last Admin Trade Name Freq PRN Reason Stop Dose Admin Albuterol/Ipratropium 3 ml 01/27/20 01:52 01/27/20 02:27 Duoneb 3.0-0.5 Mg/3 Ml NEB 01/27/20 01:53 3 ml ONETIME ONE Administration Azithromycin 500 mg 01/27/20 01:53 01/27/20 02:27 Zithromax PO 01/27/20 01:54 500 mg ONETIME ONE Administration Ketorolac Tromethamine 30 mg 01/27/20 01:52 01/27/20 02:27 Toradol IVPUSH 01/27/20 01:53 30 mg ONETIME ONE Administration Methylprednisolone Sodium Succinate 125 mg 01/27/20 01:23 01/27/20 01:35 Solu-Medrol IVPUSH 01/27/20 01:24 125 mg ONETIME ONE Administration Departure - Departure Time of Disposition: 01:53 Disposition: Home, Self-Care 01 Condition: Good Clinical Impression: Exacerbation of asthma Qualifiers: Asthma severity: moderate Asthma persistence: persistent Qualified Code(s): J45.41 - Moderate persistent asthma with (acute) exacerbation - Discharge Information *PRESCRIPTION DRUG MONITORING PROGRAM REVIEWED*: No *COPY OF PRESCRIPTION DRUG MONITORING REPORT IN PATIENT IVANNA: No Instructions: Asthma, Adult Referrals: PCP,None [Primary Care Provider] - Forms: ED Department Discharge Additional Instructions: azithromycin 250mg daily for 4 days continue inhaler every 4 hours as needed prednisone taper tesselon 200mg one every 8 hours as needed for cough increase fluids alternate tylenol and ibuprofen every 4 hours as needed for discomfort clinic friday if not improving Sepsis Event Note (ED) - Evaluation Sepsis Screening Result: No Definite Risk - Focused Exam Vital Signs: Vital Signs Temp Pulse Resp BP Pulse Ox 01/26/20 23:55 97.4 F 94 20 124/76 95 - My Orders Last 24 Hours: My Active Orders 01/27/20 00:22 CULTURE BLOOD [BC] Stat 01/27/20 01:52 RT Aerosol Therapy [RC] ASDIRECTED - Assessment/Plan Last 24 Hours: My Active Orders 01/27/20 00:22 CULTURE BLOOD [BC] Stat 01/27/20 01:52 RT Aerosol Therapy [RC] ASDIRECTED
== END 2020-01-27 02:43 | disposition home or self-care (01) ==
LOC: DL.ED 23:34
DX: J45.41 Moderate persistent asthma with (acute) exacerbation (principal); F41.9 Anxiety disorder, unspecified; F32.9 Major depressive disorder, single episode, unspecified; E66.9 Obesity, unspecified; F17.290 Nicotine dependence, other tobacco product, uncomplicated; Z20.828 Contact with and (suspected) exposure to other viral communicable diseases; Z79.899 Other long term (current) drug therapy
CPT/HCPCS: 36415; 71045; 80053; 81001; 83605; 83880; 84484; 85025; 87040; 87635; 96374; 96375; 99285; A9270; J1885; J2930; 99283; J7620-GY; U0002

== ENCOUNTER 2021-12-10 16:33 | Emergency (ER) | payer MEDICAID ==
[2021-12-10] MEDS ORDERED: Silver Sulfadiazine 1% Crm 50 GM Tube TOP ONE (17:00)
== END 2021-12-10 17:16 | disposition home or self-care (01) ==
LOC: DL.ED 16:33
DX: T23.261A Burn of second degree of back of right hand, initial encounter (principal); J45.909 Unspecified asthma, uncomplicated; F17.210 Nicotine dependence, cigarettes, uncomplicated; E66.9 Obesity, unspecified; Z68.37 Body mass index [BMI] 37.0-37.9, adult; Z79.899 Other long term (current) drug therapy; X10.0XXA Contact with hot drinks, initial encounter
CPT/HCPCS: 16020; 99283; A9270